=== PATIENT | male | born 1980 | race African-American/Black ===

== ENCOUNTER 2023-06-18 11:00 | Inpatient (IN) | payer MEDICAID ==
[~2023-06-18] VITALS: Ht 185.4 cm; Wt 105.6 kg
[2023-06-18 15:28] VITALS: BP 131/70; PULSE 69; RESP 18; TEMP 96.8
[2023-06-18] MEDS ORDERED: INFLUENZA VIRUS VACCINE QVS 2023-24 (6MO+)/PF 60 MCG/0.5 ML SYRINGE IM. ONE (17:30)
[2023-06-18] MEDS: CEPHALEXIN MONOHYDRATE 500 MG CAPSULE PO SCH ×2 (17:34→21:14)
[2023-06-18 20:25] VITALS: BP 142/78; PULSE 74; RESP 18; TEMP 97.1
[2023-06-19] MEDS: DARUNAVIR/COB/EMTRI/TENOF ALAF 800-150-200-10 MG TABLET PO SCH (06:57)
[2023-06-19 09:26] VITALS: BP 121/81; PULSE 87; RESP 17; TEMP 97.6
[2023-06-19] MEDS: FUROSEMIDE 40 MG TABLET PO SCH (10:11)
[2023-06-19] MEDS: LOSARTAN POTASSIUM 25 MG TABLET PO SCH (10:11)
[2023-06-19] MEDS: CEPHALEXIN MONOHYDRATE 500 MG CAPSULE PO SCH ×4 (10:11→21:00)
[2023-06-19] MEDS: SULFAMETHOX/TRIMETH DS 800-160 MG/TABLET PO SCH (10:11)
[2023-06-19] MEDS: SPIRONOLACTONE 25 MG TABLET PO SCH (10:12)
[2023-06-19] MEDS: OLANZapine 5 MG TABLET PO SCH (10:14)
[2023-06-19] MEDS: BuPROPion HCL 150 MG SR TABLET PO SCH (11:11)
[2023-06-19 11:13] LABS: BASOPHILS % (AUTO) 1.7 % (0.0-2.0); HEMATOCRIT 45.9 % (41-53); HEMOGLOBIN 15.6 g/dL (13.5-17.5); LYMPHOCYTES # (AUTO) 1.3 K/uL (1.0-4.8); LYMPHOCYTES % (AUTO) 26.4 % (22.0-44.0); MEAN CORPUSCULAR HEMOGLOBIN 30.6 pg (26.0-34.0); MEAN CORPUSCULAR HGB CONC 33.9 G/dL (31.0-37.0); MEAN CORPUSCULAR VOLUME 90 fL (80-100); MONOCYTES # (AUTO) 0.5 K/uL (0.1-1.0); MONOCYTES % (AUTO) 9.1 % (2.0-9.0); NEUTROPHILS % (AUTO) 60.8 % (40.0-70.0); PLATELET COUNT (AUTO) 340 K/uL (150-450); RED BLOOD CELL COUNT(AUTO) 5.09 MIL/uL (4.50-5.90); RED CELL DISTRIBUTION WIDTH 13.8 % (11.5-14.5)
[2023-06-19 12:03] LABS: HEMOGLOBIN A1C 5.5 % (3.8-5.6)
[2023-06-19 12:08] LABS: ALANINE AMINOTRANSFERASE 57 U/L (12-78); ALBUMIN 3.5 g/dL (3.4-5.0); ALKALINE PHOSPHATASE 62 U/L (46-116); ANION GAP 9 mmol/L (8-16); ASPARTATE AMINOTRANSFERASE 29 U/L (15-37); BILIRUBIN,TOTAL 0.5 mg/dL (0.1-1.0); CALCIUM, TOTAL 9.4 mg/dL (8.8-10.5); CARBON DIOXIDE 25 mmol/L (22-29); CHLORIDE 101 mmol/L (98-107); CHOL/HDL RATIO 3.4 (4.2-7.3); CHOLESTEROL 155 mg/dL (131-200); CREATININE 1.33 mg/dL (0.60-1.30); FREE T4 (FREE THYROXINE) 0.94 ng/dL (0.76-1.46); GLOMERULAR FILTR. RATE CALC > 60 mL/min (>60); GLUCOSE,RANDOM 106 mg/dL (70-110); HDL CHOLESTEROL 45 mg/dL (40-60); LDL CHOL (CALC.) 80 mg/dL (0-130); POTASSIUM 4.4 mmol/L (3.5-5.1); SODIUM SERUM 135 mmol/L (136-145); THYROID STIMULATING HORMONE 1.63 uIU/mL (0.36-3.74); TOTAL PROTEIN, SERUM 6.5 g/dL (6.4-8.2); TRIGLYCERIDES 149 mg/dL (15-150); UREA NITROGEN, BLOOD 14 mg/dL (7-18)
[2023-06-19] MEDS ORDERED: CloNIDine HCL 0.1 MG TABLET PO PRN (15:15)
[2023-06-19] MEDS ORDERED: NICOTINE 14 MG/24 HOUR PATCH TD PRN (15:15)
[2023-06-19] MEDS ORDERED: MAG HYDROX/ALUMINUM HYD/SIMETH ES 30 ML SUSPENSION UDCUP PO PRN (15:15)
[2023-06-19] MEDS ORDERED: LOPERAMIDE HCL 2 MG CAPSULE PO PRN (15:15)
[2023-06-19] MEDS ORDERED: IBUPROFEN 400 MG TABLET PO PRN (15:15)
[2023-06-19] MEDS ORDERED: GuaiFENesin/D-METHORPHAN [SUGAR-FREE] 200-20MG/10 ML SYRUP UDCUP PO PRN (15:15)
[2023-06-19] MEDS ORDERED: ACETAMINOPHEN 325 MG TABLET PO PRN (15:15)
[2023-06-19] MEDS ORDERED: DOCUSATE SODIUM 100 MG CAPSULE PO PRN (15:15)
[2023-06-19] MEDS ORDERED: ALBUTEROL SULFATE HFA 90 MCG/PUFF 8 GM INHALER IH PRN (15:15)
[2023-06-19] MEDS ORDERED: PETROLATUM,WHITE 28 GM JELLY TP PRN (15:15)
[2023-06-19] MEDS ORDERED: MAGNESIUM HYDROXIDE SUSPENSION 30 ML UDCUP PO PRN (15:15)
[2023-06-19] MEDS ORDERED: ONDANSETRON HCL 4 MG TABLET PO PRN (15:15)
[2023-06-19 20:58] VITALS: BP 109/58; PULSE 68; RESP 18; TEMP 97.9
[2023-06-20] MEDS: DARUNAVIR/COB/EMTRI/TENOF ALAF 800-150-200-10 MG TABLET PO SCH (06:56)
[2023-06-20 08:00] LABS: HEMOGLOBIN A1C 5.5 % (3.8-5.6)
[2023-06-20] MEDS: LOSARTAN POTASSIUM 25 MG TABLET PO SCH (08:20)
[2023-06-20] MEDS: SPIRONOLACTONE 25 MG TABLET PO SCH (08:20)
[2023-06-20] MEDS: BuPROPion HCL 150 MG SR TABLET PO SCH (08:20)
[2023-06-20] MEDS: SULFAMETHOX/TRIMETH DS 800-160 MG/TABLET PO SCH (08:20)
[2023-06-20] MEDS: CEPHALEXIN MONOHYDRATE 500 MG CAPSULE PO SCH ×4 (08:20→20:55)
[2023-06-20] MEDS: FUROSEMIDE 40 MG TABLET PO SCH (08:20)
[2023-06-20] MEDS: OLANZapine 5 MG TABLET PO SCH (08:27)
[2023-06-20 08:30] LABS: CHOL/HDL RATIO 3.3 (4.2-7.3); THYROID STIMULATING HORMONE 2.49 uIU/mL (0.36-3.74)
[2023-06-20 09:40] VITALS: BP 132/82; PULSE 61; RESP 16; TEMP 97.9
[2023-06-20 21:28] VITALS: BP 116/62; PULSE 63; RESP 18; TEMP 98.3
[2023-06-21] MEDS: DARUNAVIR/COB/EMTRI/TENOF ALAF 800-150-200-10 MG TABLET PO SCH (06:53)
[2023-06-21] MEDS: CEPHALEXIN MONOHYDRATE 500 MG CAPSULE PO SCH ×4 (09:16→21:07)
[2023-06-21] MEDS: FUROSEMIDE 40 MG TABLET PO SCH (09:17)
[2023-06-21] MEDS: SULFAMETHOX/TRIMETH DS 800-160 MG/TABLET PO SCH (09:17)
[2023-06-21] MEDS: BuPROPion HCL 150 MG SR TABLET PO SCH (09:17)
[2023-06-21] MEDS: OLANZapine 5 MG TABLET PO SCH (09:17)
[2023-06-21] MEDS: LOSARTAN POTASSIUM 25 MG TABLET PO SCH (09:17)
[2023-06-21] MEDS: SPIRONOLACTONE 25 MG TABLET PO SCH (09:17)
[2023-06-21 11:20] LABS: APPEARANCE,URINE CLEAR (CLEAR); BILIRUBIN,URINE NEGATIVE (NEGATIVE); COLOR,URINE LIGHT YELLOW (YELLOW); GLUCOSE, URINE (UA) NEGATIVE (NEGATIVE); KETONES,URINE NEGATIVE (NEGATIVE); LEUKOCYTE ESTERASE ,URINE NEGATIVE (NEGATIVE); NITRATE,URINE NEGATIVE (NEGATIVE); OCCULT BLOOD,URINE NEGATIVE (NEGATIVE); PROTEIN,URINE NEGATIVE (NEGATIVE); SPECIFIC GRAVITIY, URINE 1.024 (1.003-1.030)
[2023-06-21 11:26] LABS: ALCOHOL, URINE DRUG SCREEN NEGATIVE (NEGATIVE); AMPHET/METH SCREEN,URINE NEGATIVE (NEGATIVE); BARBITURATE SCREEN, URINE NEGATIVE (NEGATIVE); BENZODIAZEPINES SCREEN,URINE NEGATIVE (NEGATIVE); CANNABINOID SCREEN,URINE POSITIVE (NEGATIVE); COCAINE SCREEN,URINE NEGATIVE (NEGATIVE); METHADONE SCREEN, URINE NEGATIVE (NEGATIVE); OPIATE SCREEN,URINE NEGATIVE (NEGATIVE); PHENCYCLIDINE SCREEN,URINE NEGATIVE (NEGATIVE)
[2023-06-21 12:42] VITALS: BP 119/96; PULSE 76; RESP 18; TEMP 98.1
[2023-06-21 22:37] VITALS: BP 130/73; PULSE 66; RESP 18; TEMP 98.1
[2023-06-22] MEDS: DARUNAVIR/COB/EMTRI/TENOF ALAF 800-150-200-10 MG TABLET PO SCH (06:59)
[2023-06-22] MEDS: SPIRONOLACTONE 25 MG TABLET PO SCH (08:55)
[2023-06-22] MEDS: FUROSEMIDE 40 MG TABLET PO SCH (08:55)
[2023-06-22] MEDS: OLANZapine 5 MG TABLET PO SCH (08:55)
[2023-06-22] MEDS: BuPROPion HCL 150 MG SR TABLET PO SCH (08:55)
[2023-06-22] MEDS: LOSARTAN POTASSIUM 25 MG TABLET PO SCH (08:55)
[2023-06-22 11:30] VITALS: BP 145/89; PULSE 65; RESP 18; TEMP 98
[2023-06-22 20:03] VITALS: BP 143/90; PULSE 82; RESP 18; TEMP 97.6
[2023-06-23] MEDS ORDERED: ZOLPIDEM TARTRATE 5 MG TABLET PO PRN (00:45)
[2023-06-23] MEDS: DARUNAVIR/COB/EMTRI/TENOF ALAF 800-150-200-10 MG TABLET PO SCH (06:41)
[2023-06-23 08:20] VITALS: BP 119/65; PULSE 60; RESP 18; TEMP 97.4
[2023-06-23] MEDS: SPIRONOLACTONE 25 MG TABLET PO SCH (08:44)
[2023-06-23] MEDS: BuPROPion HCL 150 MG SR TABLET PO SCH (08:44)
[2023-06-23] MEDS: LOSARTAN POTASSIUM 25 MG TABLET PO SCH (08:44)
[2023-06-23] MEDS: OLANZapine 5 MG TABLET PO SCH (08:44)
[2023-06-23] MEDS: FUROSEMIDE 40 MG TABLET PO SCH (08:44)
[2023-06-23] MEDS: LORazepam 0.5 MG TABLET PO PRN (17:51)
[2023-06-23 21:12] VITALS: BP 117/59; PULSE 65; RESP 18; TEMP 96.8
[2023-06-23] MEDS: ZOLPIDEM TARTRATE 10 MG TABLET PO PRN (21:54)
[2023-06-24] MEDS: LORazepam 0.5 MG TABLET PO PRN ×2 (06:32→15:50)
[2023-06-24] MEDS: DARUNAVIR/COB/EMTRI/TENOF ALAF 800-150-200-10 MG TABLET PO SCH (07:00)
[2023-06-24] MEDS: FUROSEMIDE 40 MG TABLET PO SCH (08:36)
[2023-06-24] MEDS: SPIRONOLACTONE 25 MG TABLET PO SCH (08:36)
[2023-06-24] MEDS: BuPROPion HCL 150 MG SR TABLET PO SCH (08:36)
[2023-06-24] MEDS: LOSARTAN POTASSIUM 25 MG TABLET PO SCH (08:36)
[2023-06-24] MEDS: OLANZapine 5 MG TABLET PO SCH (08:37)
[2023-06-24 09:44] VITALS: BP 130/86; PULSE 81; RESP 18; TEMP 98
[2023-06-24 21:29] VITALS: BP 106/61; PULSE 70; RESP 18; TEMP 97
[2023-06-24] MEDS: ZOLPIDEM TARTRATE 10 MG TABLET PO PRN (23:31)
[2023-06-25] MEDS: LORazepam 0.5 MG TABLET PO PRN ×2 (02:05→11:34)
[2023-06-25] MEDS: DARUNAVIR/COB/EMTRI/TENOF ALAF 800-150-200-10 MG TABLET PO SCH (06:56)
[2023-06-25 08:23] VITALS: BP 116/69; PULSE 67; RESP 18; TEMP 98.1
[2023-06-25] MEDS: LOSARTAN POTASSIUM 25 MG TABLET PO SCH (08:44)
[2023-06-25] MEDS: BuPROPion HCL 150 MG SR TABLET PO SCH (08:44)
[2023-06-25] MEDS: SPIRONOLACTONE 25 MG TABLET PO SCH (08:44)
[2023-06-25] MEDS: OLANZapine 5 MG TABLET PO SCH (08:44)
[2023-06-25] MEDS: FUROSEMIDE 40 MG TABLET PO SCH (08:44)
[2023-06-25 20:59] VITALS: TEMP 98
[2023-06-25] MEDS: ZOLPIDEM TARTRATE 10 MG TABLET PO PRN (21:21)
[2023-06-26] MEDS: LORazepam 0.5 MG TABLET PO PRN ×2 (00:30→18:17)
[2023-06-26] MEDS: DARUNAVIR/COB/EMTRI/TENOF ALAF 800-150-200-10 MG TABLET PO SCH (06:59)
[2023-06-26 08:30] VITALS: BP 130/87; PULSE 66; RESP 18; TEMP 97.6
[2023-06-26] MEDS: OLANZapine 5 MG TABLET PO SCH (08:39)
[2023-06-26] MEDS: FUROSEMIDE 40 MG TABLET PO SCH (08:40)
[2023-06-26] MEDS: BuPROPion HCL 150 MG SR TABLET PO SCH (08:41)
[2023-06-26] MEDS: SPIRONOLACTONE 25 MG TABLET PO SCH (08:41)
[2023-06-26] MEDS: LOSARTAN POTASSIUM 25 MG TABLET PO SCH (08:41)
[2023-06-26 20:52] VITALS: BP 133/84; PULSE 84; RESP 18; TEMP 97.3
[2023-06-27] MEDS: DARUNAVIR/COB/EMTRI/TENOF ALAF 800-150-200-10 MG TABLET PO SCH (06:55)
[2023-06-27] MEDS: LOSARTAN POTASSIUM 25 MG TABLET PO SCH (09:00)
[2023-06-27] MEDS: BuPROPion HCL 150 MG SR TABLET PO SCH (09:00)
[2023-06-27] MEDS: FUROSEMIDE 40 MG TABLET PO SCH (09:00)
[2023-06-27] MEDS: SPIRONOLACTONE 25 MG TABLET PO SCH (09:01)
[2023-06-27] MEDS: OLANZapine 5 MG TABLET PO SCH (09:03)
[2023-06-27 15:04] VITALS: BP 142/89; PULSE 78; RESP 18; TEMP 98.1
[2023-06-27] MEDS: LORazepam 0.5 MG TABLET PO PRN (20:46)
[2023-06-27 22:48] VITALS: BP 136/85; PULSE 17; RESP 18; TEMP 98.9
[2023-06-28] MEDS: DARUNAVIR/COB/EMTRI/TENOF ALAF 800-150-200-10 MG TABLET PO SCH (06:53)
[2023-06-28 08:35] LABS: ANION GAP 7 mmol/L (8-16); CALCIUM, TOTAL 9.2 mg/dL (8.8-10.5); CARBON DIOXIDE 30 mmol/L (22-29); CHLORIDE 99 mmol/L (98-107); CREATININE 1.38 mg/dL (0.60-1.30); GLOMERULAR FILTR. RATE CALC > 60 mL/min (>60); GLUCOSE,RANDOM 136 mg/dL (70-110); POTASSIUM 4.5 mmol/L (3.5-5.1); SODIUM SERUM 136 mmol/L (136-145); UREA NITROGEN, BLOOD 22 mg/dL (7-18)
[2023-06-28 09:55] VITALS: BP 140/93; PULSE 70; RESP 18; TEMP 98
[2023-06-28] MEDS: BuPROPion HCL 150 MG SR TABLET PO SCH (10:17)
[2023-06-28] MEDS: SPIRONOLACTONE 25 MG TABLET PO SCH (10:17)
[2023-06-28] MEDS: FUROSEMIDE 40 MG TABLET PO SCH (10:18)
[2023-06-28] MEDS: LOSARTAN POTASSIUM 25 MG TABLET PO SCH (10:18)
[2023-06-28] MEDS: OLANZapine 5 MG TABLET PO SCH (10:19)
[2023-06-28] MEDS: LORazepam 0.5 MG TABLET PO PRN (11:09)
[2023-06-28] MEDS ORDERED: OLAN5TAB52 PO (17:21)
[2023-06-28] MEDS ORDERED: FURO40 PO (17:21)
[2023-06-28] MEDS ORDERED: SPIR-37 PO (17:21)
[2023-06-28] MEDS ORDERED: LOSA-381 PO (17:21)
[2023-06-28] MEDS ORDERED: DARU1TAB3 PO (17:21)
[2023-06-28] MEDS ORDERED: BUPR-72 PO (17:21)
== END 2023-06-28 18:15 | disposition home or self-care (01) | DRG 753 ==
LOC: 3EX 15:00
PROVIDERS: ADMIT Psychiatry & Neurology Child & Adolescent Psychiatry; ATTEND Psychiatry & Neurology Child & Adolescent Psychiatry
PROC: GZHZZZZ Group Psychotherapy (ICD-10-PCS; principal; 2023-06-19)
DX: F31.4 Bipolar disorder, current episode depressed, severe, without psychotic features (principal); N17.9 Acute kidney failure, unspecified; Z20.822 Contact with and (suspected) exposure to COVID-19; G47.00 Insomnia, unspecified; F41.9 Anxiety disorder, unspecified; F17.200 Nicotine dependence, unspecified, uncomplicated
CPT/HCPCS: 80048; 80053; 80061; 80307; 81003; 83036; 84439; 84443; 85025; 86592; G0378; Q9967